=== PATIENT | male | born 1985 | race Caucasian/White ===

== ENCOUNTER 2022-07-14 10:04 | Emergency (ER) | payer OTHER, SELFPAY ==
--- NOTE | 2022-07-14 10:08 | ED_ITS ---
HPI - General Adult General Chief complaint: Upper Respiratory Symptoms Stated complaint: flu like symptoms,vomiting & diarrhea Time Seen by Provider: 07/14/22 10:08 History of Present Illness HPI narrative: 37-year-old male nonsmoker with noncontributory medical history presents with 4 days of dry hacking cough, body aches as well as multiple episodes of nausea, vomiting and diarrhea. He is feeling weak and generally unwell. He states his daughter was recently diagnosed with both flu and RSV. He has been unable to eat or drink or even take Tylenol or Motrin because of persistent vomiting. He denies any dizziness or lightheadedness. He denies any chest pain or shortness of breath. He denies recent travel, antibiotic use or exposure to bad food Related Data Previous Rx's Medication Instructions Recorded ondansetron 4 mg disintegrating 4 mg PO TID-QID PRN nausea and 07/14/22 tablet vomiting #20 tabs Review of Systems Review of Systems Narrative: GENERAL see HPI HEENT: Denies sinus pain, ear pain, sore throat, difficulty swallowing, dizziness. RESPIRATORY: See HPI CARDIOVASCULAR: Denies chest pain, palpitations, orthopnea, edema, GASTROINTESTINAL: See HPI : Denies dysuria, frequency, incontinence, hematuria, urinary retention. MUSCULOSKELETAL: denies weakness, joint pain, or bony pain SKIN: Denies rash, skin lesions, or other NEUROLOGIC: Denies weakness, headache, numbness, change in speech, confusion, seizures, incoordination. PSYCHIATRIC: No concerning psychosocial issues. 12 point review of systems is negative except for those stated above Exam Narrative Exam Narrative: GENERAL: [37 year old patient appears stated age. Well-developed patient, in mild distress. HEAD: Atraumatic. Normocephalic. EYES: Pupils equal round and reactive. Extraocular motions intact. No scleral icterus. No injection or drainage. ENT: Nose without bleeding, purulent drainage. Throat without erythema, tonsillar hypertrophy or exudate. Airway patent. NECK: Trachea midline. Non tender CARDIOVASCULAR: Regular rate and rhythm without murmurs, gallops, or rubs. RESPIRATORY: Clear to auscultation. Breath sounds equal bilaterally. No wheezes, rales, or rhonchi. GASTROINTESTINAL: Abdomen soft, non-tender, nondistended. EXTREMITIES: No edema or joint tenderness. BACK: Nontender without deformity or crepitance. No flank tenderness. NEURO: AOx3. SKIN: No rash or erythema of visible areas Initial Vital Signs Initial Vital Signs: Vital Signs Temperature 98.0 F 07/14/22 10:16 Pulse Rate 95 H 07/14/22 10:16 Respiratory Rate 16 07/14/22 10:16 Blood Pressure 136/92 H 07/14/22 10:16 Pulse Oximetry 97 07/14/22 10:16 Oxygen Delivery Method 07/14/22 10:16 Course Orders Ordered: ED Orders 07/14/22 10:18 Covid-19 + FLU A/B + RSV - PCR Stat Discontinued Medications Ondansetron HCl (Ondansetron 4 Mg Odt) 4 mg SL NOW ONE Stop: 07/14/22 10:17 Last Admin: 07/14/22 10:30 Dose: 4 mg Documented By: MONSERRAT Vital Signs Vital signs: Vital Signs - 8 hr 07/14/22 10:16 07/14/22 10:16 07/14/22 10:30 Temperature 98.0 F Pulse Rate 95 H 96 H 88 Respiratory Rate 16 Blood Pressure 136/92 H Pulse Oximetry 97 98 95 Oxygen Delivery Method Room Air 07/14/22 11:00 07/14/22 11:30 07/14/22 12:00 Temperature Pulse Rate 88 82 76 Respiratory Rate Blood Pressure Pulse Oximetry 95 95 94 Oxygen Delivery Method 07/14/22 12:08 07/14/22 12:08 Temperature Pulse Rate 85 Respiratory Rate Blood Pressure 123/81 Pulse Oximetry 96 Oxygen Delivery Method Medical Decision Making Lab Data Labs: Lab Results 07/14/22 Range/Units 10:18 SARS-CoV-2 (PCR) Negative (Negative) Influenza A (RT-PCR) Flu a positive H (NEGATIVE) Influenza B (RT-PCR) Flu b negative (NEGATIVE) RSV (PCR) Negative (Negative) Discharge Plan Departure Patient Disposition: Home Clinical Impression: Influenza A Instructions: DI for Influenza -- Adult Activity Restrictions/Additional Instructions: *You have been diagnosed with [influenza a] *What to do: *Please continue to take your regular medications as directed. [ x] New medication prescriptions sent to your pharmacy: [ [facility] in [place]] [ ] New medication written as a paper prescription [ ] No new medications given *Please follow up with your primary care provider in 2-3 days, call for an appointment. Let them know you were seen in the Emergency Department and that we ask that you be seen in follow up. We will electronically transmit a record of today's note if your PCP is in our system *Return to Emergency Department if you should have any new, worsening or concerning symptoms Prescriptions: New ondansetron 4 mg tablet,disintegrating 4 mg PO TID-QID PRN (Reason: nausea and vomiting) Qty: 20 0RF Visit Report Forms: Patient Portal/API
[2022-07-14 10:16] VITALS: BP 136/92; PULSE 95; PULSE 96; RESP 16; TEMP 36.7; O2SAT 97; O2SAT 98; BMI 32.6
[2022-07-14 10:30] VITALS: PULSE 88; O2SAT 95
[2022-07-14] MEDS: ONDANSETRON 4 MG ODT SL (10:30)
[2022-07-14 11:00] VITALS: PULSE 88; O2SAT 95
[2022-07-14 11:30] VITALS: PULSE 82; O2SAT 95
[2022-07-14 12:00] VITALS: PULSE 76; O2SAT 94
[2022-07-14 12:00] LABS: Influenza A - CEPHEID Flu A POSITIVE (NEGATIVE); Influenza B - CEPHEID Flu B NEGATIVE (NEGATIVE); Respiratory Syncytial Virus Negative (Negative)
[2022-07-14 12:04] LABS: COVID-19 CEPHEID 4-PLEX PCR Negative (Negative)
[2022-07-14 12:08] VITALS: BP 123/81; PULSE 85; O2SAT 96
== END 2022-07-14 12:26 | disposition home or self-care (01) ==
PROVIDERS: Emergency Provider Emergency Medicine
DX: J10.1 Influenza due to other identified influenza virus with other respiratory manifestations (principal); Z20.822 Contact with and (suspected) exposure to COVID-19
CPT/HCPCS: 0241U; 99282; 99283

== ENCOUNTER 2022-11-13 14:25 | Emergency (ER) | payer OTHER, SELFPAY ==
[2022-11-13] VITALS (41 sets, daily range): BP systolic 82–172; BP diastolic 53–113; PULSE 54–87; RESP 18; TEMP 37.1; O2SAT 98–100; BMI 31.0
--- NOTE | 2022-11-13 14:51 | DI.RAD.S_ITS ---
PROCEDURE: XR HAND LT MIN 3V INDICATIONS: Chop saw between 2nd and 3rd digit TECHNIQUE: 3 views of the hand(s) acquired. COMPARISON: None. FINDINGS: Bones: Cortical irregularity involving radial aspect of 2nd metacarpal head is seen concerning for acute injury in this area. No other fracture or dislocation is seen. Carpal bones are normally aligned. No suspicious bony lesions. Soft tissues: Small calcifications are noted in soft tissue over radial aspect of 2nd metacarpal head. No other radiopaque foreign body is seen. IMPRESSION: 1. Cortical irregularity involving radial aspect of 2nd metacarpal head with adjacent small calcifications likely represent chainsaw injury given patient's history. Small calcified foreign body in this area cannot be excluded suggest clinical correlation and follow-up. Dictated by: Daniele Lea M.D. on 11/13/2022 at 14:51 Approved by: Daniele Lea M.D. on 11/13/2022 at 14:53
--- NOTE | 2022-11-13 15:17 | ED.WOUNDLAC ---
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 He states that he covered it with a bandage and came to the emergency department. He is having some tingling to his left index finger but has a difficulty extending it. Reports no other injuries for the event. He is up-to-date on his tetanus. Related Data Previous Rx's Medication Instructions Recorded ondansetron 4 mg disintegrating 4 mg PO TID-QID PRN nausea and 07/14/22 tablet vomiting #20 tabs cephalexin 500 mg capsule 500 mg PO QID 7 days #28 caps 11/13/22 hydrocodone 5 mg-acetaminophen 325 1 tab PO Q4-6H PRN pain #14 tabs 11/13/22 mg tablet Allergies Allergy/AdvReac Type Severity Reaction Status Date / Time No Known Drug Allergies Allergy Verified 11/13/22 14:51 Review of Systems Musculoskeletal Musculoskeletal: Reports system reviewed and no additional complaints, except as documented Integumentary/Breasts Skin/Breast: Reports system reviewed and no additional complaints, except as documented Neurologic Neurologic: Reports system reviewed and no additional complaints, except as documented Hematologic/Lymphatic On Anticoagulants: No Patient History Social History Smoking Status: Never smoker Smoking Status: Never smoker alcohol intake frequency: 0-2 drinks per day Alcohol type: beer Substance Use Type: does not use Exam Initial Vital Signs Initial Vital Signs: Vital Signs Temperature 98.7 F 11/13/22 14:43 Pulse Rate 82 11/13/22 14:43 Respiratory Rate 18 11/13/22 14:43 Blood Pressure 136/92 H 11/13/22 14:43 Pulse Oximetry 98 11/13/22 14:43 Oxygen Delivery Method Room Air 11/13/22 14:43 Cardio Pulses: radial pulses present on the left Skin Other: Patient has an extensive wound of the dorsal left index finger. Neuro Other: Sensation is intact distal left index finger although is having some tingling. Extrem Other: Has a large wound of the dorsum of the left hand of the base of the index finger. Patient is unable to extend at the MCP joint of the left index finger. Procedures Laceration Repair Laceration 1: Site: hand Side (If applicable): left Size (cm): 10 Description: flap and irregular Depth: involves tendon Local Anesthetic: lidocaine 1% Amount of anesthesia used (mL): 12 Pre-repair: wound explored and irrigated extensively Skin layer closed with: nylon Skin layer suture size: 3-0 Technique: simple, interrupted Orthopedic Splinting/Casting Injury #1: Side: left Upper Extremity Injury Location: hand Upper Extremity Immobilizer: volar splint Post splinting neuro exam: no change Post splinting vascular exam: no change Placed by: Provider Course Orders Ordered: ED Orders 11/13/22 14:51 XR hand LT min 3V Stat 11/13/22 15:15 Basic Metabolic Panel Stat Complete Blood Count AUTO DIFF Stat Discontinued Medications Cefazolin Sodium 2 gm/ Sodium (Chloride) 100 mls @ 200 mls/hr IV NOW ONE Stop: 11/13/22 15:34 Last Infusion: 11/13/22 16:34 Dose: 0 mls/hr Documented By: Admin: 11/13/22 15:37 Dose: 200 mls/hr Documented By: RB Sodium Chloride (Normal Saline 0.9%) 1,000 mls @ 1,000 mls/hr IV BOLUS ONE Stop: 11/13/22 16:47 Last Infusion: 11/13/22 16:57 Dose: 0 mls/hr Documented By: Admin: 11/13/22 15:51 Dose: 1,000 mls/hr Documented By: RB Morphine Sulfate (Morphine 4 Mg/Ml Inj) 4 mg IV NOW ONE Stop: 11/13/22 15:06 Last Admin: 11/13/22 15:36 Dose: 4 mg Documented By: RB Vital Signs Vital signs: Vital Signs - 8 hr 11/13/22 14:43 11/13/22 15:40 11/13/22 15:40 Temperature 98.7 F Pulse Rate 82 86 Respiratory Rate 18 Blood Pressure 136/92 H 155/102 H Pulse Oximetry 98 100 Oxygen Delivery Method Room Air 11/13/22 15:45 11/13/22 15:46 11/13/22 15:46 Temperature Pulse Rate 54 L 54 L Respiratory Rate Blood Pressure 82/53 L Pulse Oximetry 99 98 Oxygen Delivery Method 11/13/22 15:50 11/13/22 15:50 11/13/22 15:52 Temperature Pulse Rate 67 Respiratory Rate Blood Pressure 103/59 L 110/75 Pulse Oximetry 99 Oxygen Delivery Method 11/13/22 15:52 11/13/22 15:54 11/13/22 15:54 Temperature Pulse Rate 72 77 Respiratory Rate Blood Pressure 116/77 Pulse Oximetry 99 100 Oxygen Delivery Method 11/13/22 15:55 11/13/22 15:57 11/13/22 15:57 Temperature Pulse Rate 76 77 Respiratory Rate Blood Pressure 138/88 Pulse Oximetry 100 100 Oxygen Delivery Method 11/13/22 16:00 11/13/22 16:00 11/13/22 16:03 Temperature Pulse Rate 70 72 Respiratory Rate Blood Pressure 143/103 H Pulse Oximetry 100 100 Oxygen Delivery Method 11/13/22 16:03 11/13/22 16:05 11/13/22 16:06 Temperature Pulse Rate 70 Respiratory Rate Blood Pressure 152/102 H 152/98 H Pulse Oximetry 100 Oxygen Delivery Method 11/13/22 16:06 11/13/22 16:09 11/13/22 16:09 Temperature Pulse Rate 73 72 Respiratory Rate Blood Pressure 139/101 H Pulse Oximetry 100 100 Oxygen Delivery Method 11/13/22 16:10 11/13/22 16:12 11/13/22 16:12 Temperature Pulse Rate 71 74 Respiratory Rate Blood Pressure 155/108 H Pulse Oximetry 100 100 Oxygen Delivery Method 11/13/22 16:15 11/13/22 16:15 11/13/22 16:18 Temperature Pulse Rate 72 78 Respiratory Rate Blood Pressure 157/108 H Pulse Oximetry 100 99 Oxygen Delivery Method 11/13/22 16:18 11/13/22 16:20 11/13/22 16:21 Temperature Pulse Rate 72 72 Respiratory Rate Blood Pressure 169/106 H Pulse Oximetry 100 100 Oxygen Delivery Method 11/13/22 16:21 11/13/22 16:24 11/13/22 16:24 Temperature Pulse Rate 73 Respiratory Rate Blood Pressure 167/106 H 166/107 H Pulse Oximetry 100 Oxygen Delivery Method 11/13/22 16:25 11/13/22 16:27 11/13/22 16:27 Temperature Pulse Rate 71 73 Respiratory Rate Blood Pressure 163/102 H Pulse Oximetry 100 99 Oxygen Delivery Method 11/13/22 16:30 11/13/22 16:30 11/13/22 16:33 Temperature Pulse Rate 82 Respiratory Rate Blood Pressure 166/108 H 172/113 H Pulse Oximetry 100 Oxygen Delivery Method 11/13/22 16:33 11/13/22 16:35 11/13/22 16:36 Temperature Pulse Rate 82 78 81 Respiratory Rate Blood Pressure Pulse Oximetry 99 99 98 Oxygen Delivery Method 11/13/22 16:36 11/13/22 16:39 11/13/22 16:39 Temperature Pulse Rate 79 Respiratory Rate Blood Pressure 172/107 H 172/102 H Pulse Oximetry 100 Oxygen Delivery Method 11/13/22 16:40 11/13/22 16:42 11/13/22 16:42 Temperature Pulse Rate 81 79 Respiratory Rate Blood Pressure 164/101 H Pulse Oximetry 100 100 Oxygen Delivery Method 11/13/22 16:45 11/13/22 16:45 11/13/22 16:48 Temperature Pulse Rate 77 Respiratory Rate Blood Pressure 170/104 H 156/101 H Pulse Oximetry 100 Oxygen Delivery Method 11/13/22 16:48 11/13/22 16:50 11/13/22 16:51 Temperature Pulse Rate 81 77 Respiratory Rate Blood Pressure 158/103 H Pulse Oximetry 100 100 Oxygen Delivery Method 11/13/22 16:51 11/13/22 16:54 11/13/22 16:54 Temperature Pulse Rate 80 85 Respiratory Rate Blood Pressure 157/95 H Pulse Oximetry 100 99 Oxygen Delivery Method 11/13/22 16:55 11/13/22 16:57 11/13/22 16:57 Temperature Pulse Rate 82 80 Respiratory Rate Blood Pressure 155/103 H Pulse Oximetry 100 99 Oxygen Delivery Method 11/13/22 17:00 11/13/22 17:00 11/13/22 17:03 Temperature Pulse Rate 83 82 Respiratory Rate Blood Pressure 154/100 H Pulse Oximetry 100 99 Oxygen Delivery Method 11/13/22 17:03 11/13/22 17:04 11/13/22 17:04 Temperature Pulse Rate 85 Respiratory Rate Blood Pressure 159/104 H 158/104 H Pulse Oximetry 99 Oxygen Delivery Method 11/13/22 17:05 Temperature Pulse Rate 87 Respiratory Rate Blood Pressure Pulse Oximetry 100 Oxygen Delivery Method MDM - Wound/Laceration Lab Data Attestation: I reviewed the patient's lab results. 11/13/22 15:15 11/13/22 15:15 Labs: Lab Results 11/13/22 11/13/22 Range/Units 15:15 15:15 WBC 9.3 (4.5-11.0) X10^3/uL RBC 5.20 (4.5-5.9) X10^6/uL Hgb 15.9 (13.5-17.5) g/dL Hct 46.2 (41-53) % MCV 88.8 (80-100) fL MCH 30.6 (26-34) PG MCHC 34.5 (30-36) % RDW 12.6 (11.6-14.8) % Plt Count 239 (150-400) X10^3/uL Neut % (Auto) 69.4 (50-75) % Lymph % (Auto) 24.1 L (25-40) % [place] % (Auto) 5.9 (3-14) % Eos % (Auto) 0.4 L (2-4) % Baso % (Auto) 0.2 (0-2) % Neut # (Auto) 6500 (3240-1091) /uL Lymph # (Auto) 2200 (5181-1152) /uL [place] # (Auto) 500 (0-900) /uL Eos # (Auto) 0 (0-450) /uL Baso # (Auto) 0 (0-100) /uL Sodium 137 (137-145) mmol/L Potassium 3.8 (3.4-5.1) mmol/L Chloride 101 (98-107) mmol/L Carbon Dioxide 27 (22-32) mmol/L BUN 18 (9-20) mg/dL Creatinine 0.97 (0.66-1.25) mg/dL Estimated GFR > 60 (>60) mL/min BUN/Creatinine Ratio 18.6 (6-22) Glucose 97 (70-100) mg/dL Calcium 9.7 (8.4-10.2) mg/dL Imaging Data Extremity x-ray #1: Radiologist's Impression: PROCEDURE:? XR HAND LT MIN 3V ? INDICATIONS:? Chop saw between 2nd and 3rd digit ? TECHNIQUE:? 3 views of the hand(s) acquired.? ? COMPARISON:? None. ? FINDINGS:? ? Bones:? Cortical irregularity involving radial aspect of 2nd metacarpal head is seen concerning for acute injury in this area.? No other fracture or dislocation is seen.? Carpal bones are normally aligned.? No suspicious bony lesions.? ? Soft tissues:? Small calcifications are noted in soft tissue over radial aspect of 2nd metacarpal head.? No other radiopaque foreign body is seen. ? ? IMPRESSION:? 1. Cortical irregularity involving radial aspect of 2nd metacarpal head with adjacent small calcifications likely represent chainsaw injury given patient's history.? Small calcified foreign body in this area cannot be excluded suggest clinical correlation and follow-up.? MDM Narrative Medical decision making narrative: Patient is up-to-date on his tetanus. He was given antibiotics here in the ER. Patient has injured the extensor tendon on his left index finger. Also appears to be some bony involvement. I did discuss the case with Dr. Duran on-call with Orthopedic surgery. Recommended that the wound be loosely closed. Patient be placed on antibiotics and that he would see the patient later this week for further evaluation. Patient was also splinted. 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 He was given return precautions. He expressed understanding and agreement. Discharge Plan Departure Patient Disposition: Home Clinical Impression: Injury of extensor tendon of left hand, Laceration Instructions: How to Take Care of Your Splint Activity Restrictions/Additional Instructions: The splint that was placed today does need to be treated like a cast. A prescription for antibiotics and pain medication was sent to the pharmacy of your choice. I recommend that tomorrow you contact the orthopedic surgeon at the number provided below and also the primary doctor for a referral through . Return to the emergency department for any new or worsening symptoms. Prescriptions: New cephalexin 500 mg capsule 500 mg PO QID 7 Days Qty: 28 0RF hydrocodone-acetaminophen 5-325 mg tablet 1 tab PO Q4-6H PRN (Reason: pain) Qty: 14 0RF No Action ondansetron 4 mg tablet,disintegrating 4 mg PO TID-QID PRN (Reason: nausea and vomiting) Qty: 20 0RF Referrals: Torrey Duran MD [Physician] - Stand Alone Forms: Patient Portal/API
[2022-11-13 15:27] LABS: Add Manual Diff / Slide Review NO; Basophils Absolute Auto 0 /uL (0-100); Basophils Percent Auto 0.2 % (0-2); Eosinophils Absolute Auto 0 /uL (0-450); Eosinophils Percent Auto 0.4 % (2-4); Hematocrit 46.2 % (41-53); Hemoglobin 15.9 g/dL (13.5-17.5); Lymphocytes Absolute Auto 2200 /uL (1100-4500); Lymphocytes Percent Auto 24.1 % (25-40); Mean Corpuscular HGB Conc 34.5 % (30-36); Mean Corpuscular Hemoglobin 30.6 PG (26-34); Mean Corpuscular Volume 88.8 fL (80-100); Monocytes Absolute Auto 500 /uL (0-900); Monocytes Percent Auto 5.9 % (3-14); Neutrophils Absolute Auto 6500 /uL (1500-7000); Neutrophils Percent Auto 69.4 % (50-75); Platelet Count 239 X10^3/uL (150-400); Red Cell Distribution Width 12.6 % (11.6-14.8); White Blood Cell Count 9.3 X10^3/uL (4.5-11.0)
[2022-11-13] MEDS: MORPHINE 4 MG/ML INJ IV (15:36)
[2022-11-13] MEDS: CEFAZOLIN VIAL 2 GM in SODIUM CHLORIDE 0.9% 100 ML IV (15:37)
[2022-11-13 15:46] LABS: BUN Creatinine Ratio 18.6 (6-22); Blood Urea Nitrogen 18 mg/dL (9-20); Calcium 9.7 mg/dL (8.4-10.2); Carbon Dioxide 27 mmol/L (22-32); Chloride 101 mmol/L (98-107); Estimated Glomerular Filt Rate > 60 mL/min (>60); Glucose 97 mg/dL (70-100); HEMOLYSIS < 15 (0-50); Potassium 3.8 mmol/L (3.4-5.1); Sodium 137 mmol/L (137-145)
[2022-11-13] MEDS: SODIUM CHLORIDE 0.9% 1,000 ML 1000 ML IV (15:51)
== END 2022-11-13 17:12 | disposition home or self-care (01) ==
PROVIDERS: Emergency Provider Emergency Medicine
DX: S66.321A Laceration of extensor muscle, fascia and tendon of left index finger at wrist and hand level, initial encounter (principal); W27.0XXA Contact with workbench tool, initial encounter
CPT/HCPCS: 13132; 36415; 73130; 80048; 85025; 96365; 96375; 99284; J0690; J2270

== ENCOUNTER → 2023-12-31 08:03 | Outpatient (CLI) | payer OTHER, SELFPAY ==
--- NOTE | 2023-12-31 08:04 | DI.US.S_ITS ---
PROCEDURE: US ABDOMEN LIMITED INDICATIONS: ABNORMAL RESULTS LFTS TECHNIQUE: Real-time scanning was performed of the abdominal and retroperitoneal organs, with image documentation. COMPARISON: None. FINDINGS: Liver: Increased liver echogenicity with posterior attenuation, most consistent with moderate to severe steatosis. Fat sparing at the gallbladder fossa. Gallbladder: No gallstones. No wall thickening. No pericholecystic edema. Negative sonographic Alford's sign. Biliary ducts: Intrahepatic bile ducts are non-dilated. Extrahepatic bile duct caliber measures 4 mm. Normal is 6-7 mm or less in diameter, or 10 mm or less post-cholecystectomy. Pancreas: Visualized portions of the pancreas are sonographically normal. Miscellaneous: No free abdominal fluid. IMPRESSION: At least moderate hepatic steatosis. Elevated liver enzymes may indicate steatohepatitis. Dictated by: Lai Andrews M.D. on 12/31/2023 at 8:56 Approved by: Lai Andrews M.D. on 12/31/2023 at 8:56
== END ==
DX: R94.5 Abnormal results of liver function studies (principal); K76.0 Fatty (change of) liver, not elsewhere classified; Z90.49 Acquired absence of other specified parts of digestive tract
CPT/HCPCS: 76705

== ENCOUNTER 2024-07-18 13:41 | Emergency (ER) | payer OTHER, SELFPAY ==
[2024-07-18 13:48] VITALS: BP 141/88; PULSE 83; RESP 18; TEMP 36.8; O2SAT 97; BMI 32.5
--- NOTE | 2024-07-18 14:13 | ED.ANIMALBIT ---
HPI - Animal Bite <Charito Goncalves PA-C - Last Filed: 07/18/24 15:54> General Chief Complaint: Animal Bite Stated Complaint: his dog bit him right arm Time Seen by Provider: 07/18/24 13:59 History of Present Illness HPI narrative: Mr. 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 Patient is accompanied by his who contributes to the history. States that last night his pet husky got into right poison and when he attempted to rip the rat poison out of the dog's mouth sustained a bite wound to his right forearm and left wrist. Reports his dog is up-to-date on all vaccines including rabies. Patient states the right forearm has become more red and swollen and he has pain in the forearm when he makes a fist with his hand. Denies fevers, chills, any other injuries. He has not taken any pain medication prior to arrival. He is unsure of his last tetanus shot. Related Data Previous Rx's Medication Instructions Recorded ondansetron 4 mg disintegrating 4 mg PO TID-QID PRN nausea and 07/14/22 tablet vomiting #20 tabs hydrocodone 5 mg-acetaminophen 325 1 tab PO Q4-6H PRN pain #14 tabs 11/13/22 mg tablet amoxicillin 875 mg-potassium 1 tab PO BID 10 days #20 tabs 07/18/24 clavulanate 125 mg tablet Allergies Allergy/AdvReac Type Severity Reaction Status Date / Time No Known Drug Allergies Allergy Verified 11/13/22 14:51 Review of Systems <Charito Goncalves PA-C - Last Filed: 07/18/24 15:54> Review of Systems ROS Unobtainable: All systems reviewed & are unremarkable except as noted in HPI and below Patient History <Charito Gnocalves PA-C - Last Filed: 07/18/24 15:54> Social History Smoking Status: Current every day smoker Smoking Status: Current every day smoker tobacco type: vaping alcohol intake frequency: 0-2 drinks per day Alcohol type: beer Substance Use Type: does not use Exam <Charito Goncalves PA-C - Last Filed: 07/18/24 15:54> Narrative Exam Narrative: GENERAL: 39 year old patient appears stated age. Well-developed patient, in no acute distress. HEAD: Atraumatic. Normocephalic. EYES: Extraocular motions intact. No scleral icterus. No injection or drainage. ENT: Nose without bleeding, purulent drainage. Airway patent. NECK: Trachea midline. Cervical ROM intact. CARDIOVASCULAR: Regular rate RESPIRATORY: ?Nonlabored respirations. ?Speaking in clear, full sentences. ? EXTREMITIES: right arm brace and KT tape in place for prior injuries. Dorsal, proximal right forearm with 3 superficial appearing puncture wounds with surrounding swelling and erythema, tender to touch. Left wrist with 3 superficial abrasion/scabs. Patient has full range of motion of the right hand and sensation intact to light touch in the distribution of the median, radial, ulnar nerve. Patient has pain in the forearm when he range of motions his hand. Strong palpable bilateral radial pulses. Right forearm compartments are soft. BACK: Nontender without deformity or crepitance. No flank tenderness. NEURO: AOx3. ?Clear speech. ?Moves all 4 extremities appropriately. SKIN: No rash or erythema of visible areas Initial Vital Signs Initial Vital Signs: Vital Signs Temperature 98.2 F 07/18/24 13:48 Pulse Rate 83 07/18/24 13:48 Respiratory Rate 18 07/18/24 13:48 Blood Pressure 141/88 H 07/18/24 13:48 Pulse Oximetry 97 07/18/24 13:48 Oxygen Delivery Method Room Air 07/18/24 13:48 <Whit Suresh MD - Last Filed: 07/18/24 19:25> Initial Vital Signs Initial Vital Signs: Vital Signs Temperature 98.2 F 07/18/24 13:48 Pulse Rate 83 07/18/24 13:48 Respiratory Rate 18 07/18/24 13:48 Blood Pressure 141/88 H 07/18/24 13:48 Pulse Oximetry 97 07/18/24 13:48 Oxygen Delivery Method Room Air 07/18/24 13:48 Course <Charito Goncalves PA-C - Last Filed: 07/18/24 15:54> Orders Ordered: ED Orders 07/18/24 14:21 XR forearm RT 2V Stat Discontinued Medications Amoxicillin/Clavulanate Potassium (Amoxicillin/Clav 875/125 Mg) 1 tab PO NOW ONE Stop: 07/18/24 14:23 Last Admin: 07/18/24 14:31 Dose: 1 tab Documented By: SCOTT Bacitracin (Bacitracin Oint 0.9 Gm Pckt) 1 applic TOP NOW ONE Stop: 07/18/24 14:55 Last Admin: 07/18/24 15:03 Dose: 1 applic Documented By: SCOTT Diphtheria/Tetanus/Acell Pertussis (Tet,Diph,Pertuss(Acell),Vac/Pf 0.5 Ml Syringe) 0.5 ml IM .ONCE ONE Stop: 07/18/24 14:22 Last Admin: 07/18/24 14:51 Dose: 0.5 ml Documented By: SCOTT Ibuprofen (Ibuprofen 400 Mg Tablet) 400 mg PO NOW ONE Stop: 07/18/24 14:22 Last Admin: 07/18/24 14:31 Dose: 400 mg Documented By: SCOTT Oxycodone/Acetaminophen (Oxycodone/Acetaminophen 5/325 Tablet) 1 tab PO NOW ONE Stop: 07/18/24 14:22 Last Admin: 07/18/24 14:31 Dose: 1 tab Documented By: SCOTT Vital Signs Vital signs: Vital Signs - 8 hr 07/18/24 13:48 Temperature 98.2 F Pulse Rate 83 Respiratory Rate 18 Blood Pressure 141/88 H Pulse Oximetry 97 Oxygen Delivery Method Room Air <Whit Suresh MD - Last Filed: 07/18/24 19:25> Orders Ordered: ED Orders 07/18/24 14:21 XR forearm RT 2V Stat Discontinued Medications Amoxicillin/Clavulanate Potassium (Amoxicillin/Clav 875/125 Mg) 1 tab PO NOW ONE Stop: 07/18/24 14:23 Last Admin: 07/18/24 14:31 Dose: 1 tab Documented By: SCOTT Bacitracin (Bacitracin Oint 0.9 Gm Pckt) 1 applic TOP NOW ONE Stop: 07/18/24 14:55 Last Admin: 07/18/24 15:03 Dose: 1 applic Documented By: SCOTT Diphtheria/Tetanus/Acell Pertussis (Tet,Diph,Pertuss(Acell),Vac/Pf 0.5 Ml Syringe) 0.5 ml IM .ONCE ONE Stop: 07/18/24 14:22 Last Admin: 07/18/24 14:51 Dose: 0.5 ml Documented By: SCOTT Ibuprofen (Ibuprofen 400 Mg Tablet) 400 mg PO NOW ONE Stop: 07/18/24 14:22 Last Admin: 07/18/24 14:31 Dose: 400 mg Documented By: SCOTT Oxycodone/Acetaminophen (Oxycodone/Acetaminophen 5/325 Tablet) 1 tab PO NOW ONE Stop: 07/18/24 14:22 Last Admin: 07/18/24 14:31 Dose: 1 tab Documented By: SCOTT Vital Signs Vital signs: Vital Signs - 8 hr 07/18/24 13:48 Temperature 98.2 F Pulse Rate 83 Respiratory Rate 18 Blood Pressure 141/88 H Pulse Oximetry 97 Oxygen Delivery Method Room Air MDM - Animal Bite <Charito Goncalves PA-C - Last Filed: 07/18/24 15:54> Imaging Data Right Forearm XRay: My Impression: On my independent interpretation of the right forearm x-ray, there is no fracture of the radius or ulna. Radiologist's Impression: PROCEDURE: XR FOREARM RT 2V INDICATIONS: dog bite dorsal right forearm TECHNIQUE: 2 views of the forearm were acquired. COMPARISON: None. FINDINGS: Bones: No fractures or dislocations. No suspicious bony lesions. Soft tissues: No suspicious soft tissue calcifications or masses. No subcutaneous emphysema or radiodense body. Mild soft tissue swelling at the dorsal aspect of the mid forearm. IMPRESSION: No acute bony abnormality. Mild soft tissue swelling of the dorsal aspect of the mid forearm without evidence of radiodense foreign body or subcutaneous emphysema. [facility] Narrative Medical decision making narrative: 39-year-old male with a past medical history of right biceps tendon rupture and extensor tendon rupture presents to the emergency department for a dog bite that occurred last night. Dog was the patient's vaccinated pet. Differential diagnosis includes but is not limited to crush injury, dog bite, infection, cellulitis, abscess, puncture wound, compartment syndrome, fracture, etc. On exam patient is in no acute distress, not tachycardic or febrile. He has puncture wounds on the dorsal right forearm with surrounding erythema concerning for early cellulitis. He also has superficial puncture wounds on the left wrist. Patient's right arm compartment is soft but he does have tenderness to palpation, right hand neurovascularly intact. We will obtain x-ray of the right forearm to rule of bony crush injury. We will update tetanus shot, treat pain with Percocet and ibuprofen. We will give 1st dose of Augmentin. Right forearm x-ray negative for acute bony abnormality. There is mild soft tissue swelling without evidence of radiodense foreign body or subcutaneous emphysema. Imaging results were reviewed with the patient and he was provided with a printed copy. Patient was prescribed Augmentin b.i.d. x 10 days for dog bite infection. Tdap updated. We discussed proper wound care extensively. Discussed signs and symptoms of worsening wound infection or compartment syndrome to return to the ER immediately for. Patient was recommended rice therapy in addition to ibuprofen and Tylenol. Patient is agreeable to the plan, stable for discharge. Discharge Plan Departure Patient Disposition: Home Clinical Impression: Dog bite of right forearm Qualifiers: Encounter type: initial encounter Qualified Code(s): S51.851A - Open bite of right forearm, initial encounter Dog bite of left wrist Qualifiers: Encounter type: initial encounter Qualified Code(s): S61.552A - Open bite of left wrist, initial encounter Instructions: DI for Dog Bite Activity Restrictions/Additional Instructions: Please complete the full course of antibiotics. Keep your wounds clean, covered with antibiotic ointment and a bandage dressing. Your tetanus shot was updated today. If you develop severe pain, numbness or tingling, fevers, streaking redness from the wound, or any other new or worsening symptoms, return to the ER immediately. Please take Ibuprofen (Motrin/Advil) or Acetaminophen (Tylenol) for pain. These are available over the counter. You may take Ibuprofen 600 mg every 8 hours with food for pain. You may also take Acetaminophen 650 mg every 4-6 hours for pain. Do not exceed 3000 mg of Tylenol a day as this can cause liver damage. Do not drink alcohol with either of these medications. Please use RICE therapy for your pain in addition to ibuprofen/acetaminophen. Rest the painful area. Ice the area of pain/swelling for at least 15 minutes, 4x a day. Compress the area of swelling using a brace, wrap, or splint if applied. Elevate the painful or swollen extremity by supporting it above the level of the heart with pillows when sitting or laying. Please follow up with Orthopedics for further evaluation. You may schedule an appointment with [facility] by calling [phone]. Please follow up with your primary care doctor within the next 2-3 days for ER follow-up / wound re-check. (If you do not have a PCP you can call [phone]. ?to schedule an appointment with an [facility] Primary Care Provider) IF YOU DEVELOP ANY NEW OR WORSENING SYMPTOMS, RETURN TO THE ER! Please read the attached instructions, they highlight more specific treatments and interventions for you at home. Thank you for letting me participate in your care, Charito Goncalves PA-C Prescriptions: New amoxicillin-pot clavulanate 875-125 mg tablet 1 tab PO BID 10 Days Qty: 20 0RF No Action ondansetron 4 mg tablet,disintegrating 4 mg PO TID-QID PRN (Reason: nausea and vomiting) Qty: 20 0RF hydrocodone-acetaminophen 5-325 mg tablet 1 tab PO Q4-6H PRN (Reason: pain) Qty: 14 0RF Stand Alone Forms: Patient Portal/API/Survey ED Sign-out <Whit Suresh MD - Last Filed: 07/18/24 19:25> Cosign ED Attending Cosavaniature Attestation: I was immediately available in the department for consultation throughout this patient's visit. Whit Suresh MD
--- NOTE | 2024-07-18 14:21 | DI.RAD.S_ITS ---
PROCEDURE: XR FOREARM RT 2V INDICATIONS: dog bite dorsal right forearm TECHNIQUE: 2 views of the forearm were acquired. COMPARISON: None. FINDINGS: Bones: No fractures or dislocations. No suspicious bony lesions. Soft tissues: No suspicious soft tissue calcifications or masses. No subcutaneous emphysema or radiodense body. Mild soft tissue swelling at the dorsal aspect of the mid forearm. IMPRESSION: No acute bony abnormality. Mild soft tissue swelling of the dorsal aspect of the mid forearm without evidence of radiodense foreign body or subcutaneous emphysema. Approved by: Vashti Rangel M.D.,Ph.D. on 07/18/2024 at 14:47
[2024-07-18] MEDS: OXYCODONE/ACETAMINOPHEN 5/325 TABLET 1 TAB PO (14:31)
[2024-07-18] MEDS: AMOXICILLIN/CLAV 875/125 MG 1 TAB PO (14:31)
[2024-07-18] MEDS: IBUPROFEN 400 MG TABLET PO (14:31)
[2024-07-18] MEDS: TET,DIPH,PERTUSS(ACELL),VAC/PF 0.5 ML SYRINGE IM (14:51)
[2024-07-18] MEDS: BACITRACIN OINT 0.9 GM PCKT 1 APPLIC TOP (15:03)
== END 2024-07-18 15:35 | disposition home or self-care (01) ==
PROVIDERS: Emergency Provider Physician Assistant
DX: S51.851A Open bite of right forearm, initial encounter (principal); S61.552A Open bite of left wrist, initial encounter; W54.0XXA Bitten by dog, initial encounter; Z23 Encounter for immunization
CPT/HCPCS: 73090; 90471; 99283; 90715

== ENCOUNTER 2024-09-01 10:17 | Emergency (ER) | payer OTHER, SELFPAY ==
[2024-09-01 10:21] VITALS: BP 168/112; PULSE 75; RESP 15; TEMP 36.4; O2SAT 99; BMI 36.1
[2024-09-01 10:43] LABS: Add Manual Diff / Slide Review NO; Basophils Absolute Auto 0 /uL (0-100); Basophils Percent Auto 0.4 % (0-2); Eosinophils Absolute Auto 0 /uL (0-450); Eosinophils Percent Auto 0.5 % (2-4); Hematocrit 44.3 % (41-53); Hemoglobin 15.4 g/dL (13.5-17.5); Lymphocytes Absolute Auto 2100 /uL (1100-4500); Lymphocytes Percent Auto 32.9 % (25-40); Mean Corpuscular HGB Conc 34.8 % (30-36); Mean Corpuscular Hemoglobin 30.9 PG (26-34); Mean Corpuscular Volume 88.7 fL (80-100); Monocytes Absolute Auto 500 /uL (0-900); Monocytes Percent Auto 8.2 % (3-14); Neutrophils Absolute Auto 3700 /uL (1500-7000); Platelet Count 232 X10^3/uL (150-400); Red Blood Cell Count 4.99 X10^6/uL (4.5-5.9); Red Cell Distribution Width 12.5 % (11.6-14.8); White Blood Cell Count 6.4 X10^3/uL (4.5-11.0)
[2024-09-01 10:53] LABS: Alanine Aminotransferase 110 IU/L (<50); Albumin 5.1 g/dL (3.5-5.0); Albumin Globulin Ratio 1.8 (1.0-2.8); Alkaline Phosphatase 50 U/L (38-126); Aspartate Aminotransferase 51 IU/L (17-59); BUN Creatinine Ratio 13.4 (6-22); Bilirubin Total 0.6 mg/dL (0.2-1.3); Blood Urea Nitrogen 16 mg/dL (9-20); Calcium 9.7 mg/dL (8.4-10.2); Carbon Dioxide 26 mmol/L (22-32); Chloride 103 mmol/L (98-107); Estimated Glomerular Filt Rate > 60 mL/min (>60); Globulin 2.9 g/dL (1.7-4.1); Glucose 112 mg/dL (70-100); HEMOLYSIS < 15 (0-50); Lipase 151 U/L (23-300); Potassium 4.1 mmol/L (3.4-5.1); Sodium 137 mmol/L (137-145)
--- NOTE | 2024-09-01 11:49 | ED_ITS ---
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 Patient reports 5-8 episodes of diarrhea daily that occur regardless if he eats or drinks. Patient denies any blood or mucus in his stool. Patient denies any travel outside the country or drinking or eating from questionable sources. Patient does endorse 3 alcoholic drinks daily. Patient states that he has been placed on a statin for his cholesterol approximately 9 months ago and has had multiple lab tests to ensure there is no liver involvement. Patient endorses 5 to 7/10 pain. Patient's family doctor had ordered a stool culture, and when patient was returning to the lab, was instructed to come to the emergency department for worsening abdominal pain. Related Data Previous Rx's Medication Instructions Recorded ondansetron 4 mg disintegrating 4 mg PO TID-QID PRN nausea and 07/14/22 tablet vomiting #20 tabs hydrocodone 5 mg-acetaminophen 325 1 tab PO Q4-6H PRN pain #14 tabs 11/13/23 mg tablet Allergies Allergy/AdvReac Type Severity Reaction Status Date / Time No Known Drug Allergies Allergy Verified 09/01/24 10:21 Review of Systems <MIGUEL Sanders - Last Filed: 09/01/24 13:35> Review of Systems Narrative: Narrative: See HPI. GENERAL: Denies chills, fatigue, fever, sweats. HEENT: Denies sinus pain, ear pain, sore throat, difficulty swallowing, dizziness. RESPIRATORY: Denies dyspnea, cough, wheezing, sputum. CARDIOVASCULAR: Denies chest pain, palpitations, edema. GASTROINTESTINAL: Denies nausea, vomiting, constipation. Endorses diarrhea and left-sided abdominal pain. : Denies dysuria, frequency, incontinence, hematuria, urinary retention, flank pain. MSK: Denies weakness, joint pain, or bony pain. SKIN: Denies rash, skin lesions, or pruritis. NEUROLOGIC: Denies weakness, dizziness, headache, numbness, confusion. Patient History <MIGUEL Sanders - Last Filed: 09/01/24 13:35> Social History Smoking Status: Current every day smoker Smoking Status: Current every day smoker tobacco type: vaping alcohol intake frequency: 0-2 drinks per day Alcohol type: beer Exam <MIGUEL Sanders - Last Filed: 09/01/24 13:35> Narrative Exam Narrative: Exam Narrative: GENERAL: This is a well-nourished, well-developed patient, in no acute distress. HEAD: Atraumatic. Normocephalic. EYES: Pupils equal round and reactive. Extraocular motions intact. No scleral icterus, injection or drainage. ENT: Nose without bleeding, purulent drainage. Airway patent. NECK: Trachea midline. No JVD or lymphadenopathy. Nontender. CARDIOVASCULAR: Regular rate and rhythm without murmurs, peripheral pulses intact, cap refill <2 sec. RESPIRATORY: Breath sounds equal and clear bilaterally. No wheezes, rales, or rhonchi. No cough. No increased respiratory effort. No accessory muscle use. GASTROINTESTINAL: Abdomen soft, left-sided tenderness, nondistended without guarding or rebound. No suprapubic pain. MSK: Moves all extremities. Normal range of motion, no clubbing or edema. Neurovascularly intact. NEURO: A&O x 3. SKIN: Warm, dry, no rashes or lesions noted. Initial Vital Signs Initial Vital Signs: Vital Signs Temperature 97.5 F L 09/01/24 10:21 Pulse Rate 75 09/01/24 10:21 Respiratory Rate 15 09/01/24 10:21 Blood Pressure 168/112 H 09/01/24 10:21 Pulse Oximetry 99 09/01/24 10:21 Oxygen Delivery Method Room Air 09/01/24 10:21 Reviewed <Toy Vera MD - Last Filed: 09/03/24 08:30> Initial Vital Signs Initial Vital Signs: Vital Signs Temperature 97.5 F L 09/01/24 10:21 Pulse Rate 75 09/01/24 10:21 Respiratory Rate 15 09/01/24 10:21 Blood Pressure 168/112 H 09/01/24 10:21 Pulse Oximetry 99 09/01/24 10:21 Oxygen Delivery Method Room Air 09/01/24 10:21 Course <MIGUEL Sanders - Last Filed: 09/01/24 13:35> Orders Ordered: Discontinued Medications Ondansetron HCl (Ondansetron 4 Mg/2 Ml Inj) 4 mg IV NOW PRN PRN Reason: Nausea And Vomiting Ondansetron HCl (Ondansetron 4 Mg Odt) 4 mg PO NOW PRN PRN Reason: Nausea And Vomiting Vital Signs Vital signs: Vital Signs - 8 hr 09/01/24 10:21 09/01/24 12:26 Temperature 97.5 F L Pulse Rate 75 69 Respiratory Rate 15 18 Blood Pressure 168/112 H 143/83 H Pulse Oximetry 99 100 Oxygen Delivery Method Room Air Room Air <Toy Vera MD - Last Filed: 09/03/24 08:30> Orders Ordered: Discontinued Medications Ondansetron HCl (Ondansetron 4 Mg/2 Ml Inj) 4 mg IV NOW PRN PRN Reason: Nausea And Vomiting Ondansetron HCl (Ondansetron 4 Mg Odt) 4 mg PO NOW PRN PRN Reason: Nausea And Vomiting Vital Signs Vital signs: Vital Signs - 8 hr 09/01/24 10:21 09/01/24 12:26 Temperature 97.5 F L Pulse Rate 75 69 Respiratory Rate 15 18 Blood Pressure 168/112 H 143/83 H Pulse Oximetry 99 100 Oxygen Delivery Method Room Air Room Air MDM - Abdominal Pain <MIGUEL Sanders - Last Filed: 09/01/24 13:35> Differential Diagnosis Differential diagnosis: Likely abdominal pain, small bowel obstruction and other (Diarrhea, liver damage ) Lab Data 09/01/24 10:33 09/01/24 10:33 Labs: Lab Results 09/01/24 09/01/24 Range/Units 10:33 10:44 WBC 6.4 (4.5-11.0) X10^3/uL RBC 4.99 (4.5-5.9) X10^6/uL Hgb 15.4 (13.5-17.5) g/dL Hct 44.3 (41-53) % MCV 88.7 (80-100) fL MCH 30.9 (26-34) PG MCHC 34.8 (30-36) % RDW 12.5 (11.6-14.8) % Plt Count 232 (150-400) X10^3/uL Neut % (Auto) 58.0 (50-75) % Lymph % (Auto) 32.9 (25-40) % Daniels % (Auto) 8.2 (3-14) % Eos % (Auto) 0.5 L (2-4) % Baso % (Auto) 0.4 (0-2) % Neut # (Auto) 3700 (6225-6503) /uL Lymph # (Auto) 2100 (3210-6901) /uL Daniels # (Auto) 500 (0-900) /uL Eos # (Auto) 0 (0-450) /uL Baso # (Auto) 0 (0-100) /uL Sodium 137 (137-145) mmol/L Potassium 4.1 (3.4-5.1) mmol/L Chloride 103 (98-107) mmol/L Carbon Dioxide 26 (22-32) mmol/L BUN 16 (9-20) mg/dL Creatinine 1.19 (0.66-1.25) mg/dL Estimated GFR > 60 (>60) mL/min BUN/Creatinine Ratio 13.4 (6-22) Glucose 112 H (70-100) mg/dL Calcium 9.7 (8.4-10.2) mg/dL Total Bilirubin 0.6 (0.2-1.3) mg/dL AST 51 (17-59) IU/L ALT 110 H (<50) IU/L Alkaline Phosphatase 50 (38-126) U/L Total Protein 8.0 (6.3-8.2) g/dL Albumin 5.1 H (3.5-5.0) g/dL Globulin 2.9 (1.7-4.1) g/dL Albumin/Globulin Ratio 1.8 (1.0-2.8) Lipase 151 (23-300) U/L Stl C. cayetanensis PCR Not detected (Not Detect) Stool Rotavirus (PCR) Not detected (Not Detect) Stool Adenovirus (PCR) Not detected (Not Detect) Stool Astrovirus (PCR) Not detected (Not Detect) Stool Cryptosporidium PCR Not detected (Not Detect) Stl E.coli Shiga Tox PCR Not detected (Not Detect) St Sh/Enteroin Ecoli PCR Not detected (Not Detect) Stl Enterotoxigenic E PCR Not detected (Not Detect) Stool EPEC (PCR) Not detected (Not Detect) Stl E. histolytica PCR Not detected (Not Detect) Stool Giardia Lamblia PCR Not detected (Not Detect) Stool Sapovirus (PCR) Not detected (Not Detect) Stl P. shigelloides PCR Not detected (Not Detect) St Y.enterocolitica PCR Not detected (Not Detect) Stool Vibrio (PCR) Not detected (Not Detect) Stl Vibrio cholerae PCR Not detected (Not Detect) Stl Enteroaggr Ecoli PCR Not detected (Not Detect) Stl Norovirus GI/GII PCR Not detected (Not Detect) Campylobacter (PCR) Not detected (Not Detect) C. difficile Tox (PCR) Not detected (Not Detect) Salmonella (PCR) Not detected (Not Detect) Point of care testing: Urine Dip Bedside Urine Glucose Negative Bedside Urine Bilirubin - Negative Bedside Urine Ketone - Negative Urine Specific [place] 1.010 Bedside Urine Occult Blood - Negative Bedside Urine pH 6 Bedside Urine Protein - Negative Bedside Urine Urobilinogen - Negative Bedside Urine Nitrite - Negative Bedside Urine Leukocytes - Negative Esterase Imaging Data CT scan - abdomen: Radiologist's Impression: [place] [address] CT Scan Report Signed Patient: Britton Aldridge MR#: [id number] : 1985 Acct:[id number] Age/Sex: 39 / M Date of Service: 09/01/24 Loc: ED Accession Number: [id number] Procedure: CT abdomen pelvis w con Ordering Provider: [place] PROCEDURE: CT ABDOMEN PELVIS W CON INDICATIONS: Left-sided abdominal pain TECHNIQUE: After the administration of intravenous contrast, axial sections acquired from the lung bases to the pubic symphysis. Coronal and sagittal reformats were performed. For radiation dose reduction, the following was used: automated exposure control, adjustment of mA and/or kV according to patient size. COMPARISON: None. FINDINGS: Image quality: Diagnostic. Lower Chest: No significant findings. ABDOMEN: Liver: No solid mass. Moderate diffuse hepatic steatosis. Gallbladder: No radiopaque gallstones or wall thickening. Biliary ducts: No biliary dilation. Pancreas: No ductal dilation. Spleen: Size is within normal limits. Adrenal Glands: No adrenal nodules. Kidneys and Ureters: No hydronephrosis. No solid mass. No complex renal cystic lesion which requires follow up. Stomach and Bowel: Normal colonic caliber, without significant wall thickening. Normal appendix. Unremarkable sigmoid. No diverticuli identified. Peritoneum: No abnormal intraperitoneal fluid. No free air. Ventral Wall: No significant ventral hernia. Abdominal Nodes: No retroperitoneal or mesenteric adenopathy by size criteria. Vessels: Aorta and inferior vena cava are normal in size. PELVIS: Pelvic Organs: Unremarkable. Bladder: Mild bladder wall thickening, possibly chronic, as there is focal fatty infiltration of the wall of the bladder at the fundus. Pelvic Nodes: No enlarged lymph nodes. Miscellaneous: No inguinal hernias are seen. Bones: No aggressive osseous abnormality. IMPRESSION: No acute abdominal process. Moderate diffuse hepatic steatosis. Mild bladder wall thickening may be chronic. Consider correlation with urine studies. Dictated by: Andres Crowder M.D. on 09/01/2024 at 13:16 Approved by: Andres Crowder M.D. on 09/01/2024 at 13:20 MDM Narrative Medical decision making narrative: 39-year-old male with 2 month history diarrhea and 2 day history of worsening left-sided abdominal pain. Clinical findings were concerning for worsening left-sided abdominal pain. Labs were non concerning with the exception of a 2:1 ratio AST to ALT. Unsure if this ALT elevation is secondary to alcohol intake or statin prescription. Urine dip and GI panel were both negative. Patient declined anti-nausea medication at this time. Abdominal CT obtained and reveals moderate diffuse hepatic steatosis. Discussed case with Dr. Owusu and referral for General surgery will be submitted for possible colonoscopy. Discussed plan of care and return precautions with patient, who verbalized understanding and was agreeable with course of action. <Toy Vera MD - Last Filed: 09/03/24 08:30> Lab Data Labs: Lab Results 09/01/24 09/01/24 Range/Units 10:33 10:44 WBC 6.4 (4.5-11.0) X10^3/uL RBC 4.99 (4.5-5.9) X10^6/uL Hgb 15.4 (13.5-17.5) g/dL Hct 44.3 (41-53) % MCV 88.7 (80-100) fL MCH 30.9 (26-34) PG MCHC 34.8 (30-36) % RDW 12.5 (11.6-14.8) % Plt Count 232 (150-400) X10^3/uL Neut % (Auto) 58.0 (50-75) % Lymph % (Auto) 32.9 (25-40) % Daniels % (Auto) 8.2 (3-14) % Eos % (Auto) 0.5 L (2-4) % Baso % (Auto) 0.4 (0-2) % Neut # (Auto) 3700 (5296-2662) /uL Lymph # (Auto) 2100 (6938-1824) /uL Daniels # (Auto) 500 (0-900) /uL Eos # (Auto) 0 (0-450) /uL Baso # (Auto) 0 (0-100) /uL Sodium 137 (137-145) mmol/L Potassium 4.1 (3.4-5.1) mmol/L Chloride 103 (98-107) mmol/L Carbon Dioxide 26 (22-32) mmol/L BUN 16 (9-20) mg/dL Creatinine 1.19 (0.66-1.25) mg/dL Estimated GFR > 60 (>60) mL/min BUN/Creatinine Ratio 13.4 (6-22) Glucose 112 H (70-100) mg/dL Calcium 9.7 (8.4-10.2) mg/dL Total Bilirubin 0.6 (0.2-1.3) mg/dL AST 51 (17-59) IU/L ALT 110 H (<50) IU/L Alkaline Phosphatase 50 (38-126) U/L Total Protein 8.0 (6.3-8.2) g/dL Albumin 5.1 H (3.5-5.0) g/dL Globulin 2.9 (1.7-4.1) g/dL Albumin/Globulin Ratio 1.8 (1.0-2.8) Lipase 151 (23-300) U/L Stl C. cayetanensis PCR Not detected (Not Detect) Stool Rotavirus (PCR) Not detected (Not Detect) Stool Adenovirus (PCR) Not detected (Not Detect) Stool Astrovirus (PCR) Not detected (Not Detect) Stool Cryptosporidium PCR Not detected (Not Detect) Stl E.coli Shiga Tox PCR Not detected (Not Detect) St Sh/Enteroin Ecoli PCR Not detected (Not Detect) Stl Enterotoxigenic E PCR Not detected (Not Detect) Stool EPEC (PCR) Not detected (Not Detect) Stl E. histolytica PCR Not detected (Not Detect) Stool Giardia Lamblia PCR Not detected (Not Detect) Stool Sapovirus (PCR) Not detected (Not Detect) Stl P. shigelloides PCR Not detected (Not Detect) St Y.enterocolitica PCR Not detected (Not Detect) Stool Vibrio (PCR) Not detected (Not Detect) Stl Vibrio cholerae PCR Not detected (Not Detect) Stl Enteroaggr Ecoli PCR Not detected (Not Detect) Stl Norovirus GI/GII PCR Not detected (Not Detect) Campylobacter (PCR) Not detected (Not Detect) C. difficile Tox (PCR) Not detected (Not Detect) Salmonella (PCR) Not detected (Not Detect) Point of care testing: Urine Dip Bedside Urine Glucose Negative Bedside Urine Bilirubin - Negative Bedside Urine Ketone - Negative Urine Specific [place] 1.010 Bedside Urine Occult Blood - Negative Bedside Urine pH 6 Bedside Urine Protein - Negative Bedside Urine Urobilinogen - Negative Bedside Urine Nitrite - Negative Bedside Urine Leukocytes - Negative Esterase Discharge Plan Departure Patient Disposition: Home Clinical Impression: Abdominal pain Qualifiers: Abdominal location: left upper quadrant Qualified Code(s): R10.12 - Left upper quadrant pain Instructions: DI for Abdominal Pain-Adult Activity Restrictions/Additional Instructions: *You have been diagnosed with abdominal pain. My assessment was encouraging, your labs are not overly concerning and your CAT scan revealed moderate diffuse hepatic steatosis. I will place a referral to General surgery for possible colonoscopy to determine the cause of your persistent diarrhea. For any worsening symptoms, please return to the emergency room immediately. Otherwise, follow up with family doctor as needed. *What to do: *Please continue to take your regular medications as directed. [ ] New medication prescriptions sent to your pharmacy: [ ] [ ] New medication written as a paper prescription [x ] No new medications given *Please follow up with your primary care provider in 2-3 days, call for an appointment. Let them know you were seen in the Emergency Department and that we ask that you be seen in follow up. We will electronically transmit a record of today's note if your PCP is in our system *If you do not have a primary care provider please contact the [facility] Resource line at [phone]. They will ask some questions about your medical history and help get you set up with a doctor in the community. ? Return to ER if you should have any new, worsening or concerning symptoms, such as worsening pain, severe headache, confusion, chest pain, difficulty breathing, fever greater than 101 F, shaking chills, persistent vomiting to the point that you cannot drink fluids, or other new or worsening symptoms. Prescriptions: No Action ondansetron 4 mg tablet,disintegrating 4 mg PO TID-QID PRN (Reason: nausea and vomiting) Qty: 20 0RF hydrocodone-acetaminophen 5-325 mg tablet 1 tab PO Q4-6H PRN (Reason: pain) Qty: 14 0RF Referrals: Alban Bryan MD [Physician] - (Please evaluate and treat persistent diarrhea and left-sided abdominal pain.) Provider,Belle PUCKETT [Primary Care Provider] - Stand Alone Forms: Patient Portal/API/Survey ED Sign-out <Toy Vera MD - Last Filed: 09/03/24 08:30> Cosign ED Attending Cosignature Attestation: I was immediately available in the department for consultation. ?This documentation has been reviewed and I agree with assessment and plan. Supervised by Toy Vera MD
[2024-09-01 11:59] LABS: Adenovirus F 40/41 Not Detected (Not Detect); Astrovirus Not Detected (Not Detect); Campylobacter Not Detected (Not Detect); Clostridium difficile toxin AB Not Detected (Not Detect); Cryptosporidium Not Detected (Not Detect); Cyclospora cayetanensis Not Detected (Not Detect); Entamoeba histolytica Not Detected (Not Detect); Enteroaggregative E.coli Not Detected (Not Detect); Enteropathogenic E.coli Not Detected (Not Detect); Enterotoxigenic E.coli It/st Not Detected (Not Detect); Giardia lamblia Not Detected (Not Detect); Norovirus GI/GII Not Detected (Not Detect); Plesiomonsa shigelloides Not Detected (Not Detect); Rotavirus A Not Detected (Not Detect); Salmonella Not Detected (Not Detect); Sapovirus Not Detected (Not Detect); Shiga-like toxin-prod E.coli Not Detected (Not Detect); Shigella/Enteroinvasive E.coli Not Detected (Not Detect); Vibrio Not Detected (Not Detect); Vibrio cholerae Not Detected (Not Detect); Yersinia enterocolitica Not Detected (Not Detect)
--- NOTE | 2024-09-01 11:59 | PC.NURSE ---
Patient here in department for diarrhea x 2 months, he reports that anytime he eats or drinks anything he has diarrhea. He also reports some new onset of left sided abd pain that started two days ago, tender on palpation and with movement. Has had episodes of diarrhea in the past but never gone on this long. Patient reports some nausea but not requesting medication at this time.
[2024-09-01 12:26] VITALS: BP 143/83; PULSE 69; RESP 18; O2SAT 100
[2024-09-01 13:37] VITALS: BP 128/68; PULSE 72; RESP 16; O2SAT 98
== END 2024-09-01 13:37 | disposition home or self-care (01) ==
PROVIDERS: Emergency Medicine; Emergency Provider Registered Nurse
DX: R19.7 Diarrhea, unspecified (principal); R10.12 Left upper quadrant pain; K76.0 Fatty (change of) liver, not elsewhere classified; Z79.899 Other long term (current) drug therapy
CPT/HCPCS: 36415; 74177; 80053; 81003; 83690; 85025; 87507; 99282; 99284; Q9967

== ENCOUNTER 2024-09-03 10:51 | Emergency (ER) | payer OTHER, SELFPAY ==
[2024-09-03] VITALS (17 sets, daily range): BP systolic 116–139; BP diastolic 66–104; PULSE 65–84; RESP 14–28; TEMP 36.5; O2SAT 93–100; BMI 35.4
[2024-09-03 12:07] LABS: Add Manual Diff / Slide Review NO; Basophils Absolute Auto 0 /uL (0-100); Basophils Percent Auto 0.3 % (0-2); Eosinophils Absolute Auto 0 /uL (0-450); Eosinophils Percent Auto 0.4 % (2-4); Hematocrit 43.8 % (41-53); Hemoglobin 14.9 g/dL (13.5-17.5); Lymphocytes Absolute Auto 2000 /uL (1100-4500); Lymphocytes Percent Auto 31.6 % (25-40); Mean Corpuscular Hemoglobin 30.2 PG (26-34); Mean Corpuscular Volume 88.8 fL (80-100); Monocytes Absolute Auto 400 /uL (0-900); Monocytes Percent Auto 6.6 % (3-14); Neutrophils Absolute Auto 4000 /uL (1500-7000); Neutrophils Percent Auto 61.1 % (50-75); Platelet Count 206 X10^3/uL (150-400); Red Blood Cell Count 4.93 X10^6/uL (4.5-5.9); Red Cell Distribution Width 12.5 % (11.6-14.8); White Blood Cell Count 6.5 X10^3/uL (4.5-11.0)
--- NOTE | 2024-09-03 12:07 | EKG_ITS ---
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
[2024-09-03 12:37] LABS: Alanine Aminotransferase 116 IU/L (<50); Albumin 4.7 g/dL (3.5-5.0); Albumin Globulin Ratio 1.8 (1.0-2.8); Alkaline Phosphatase 48 U/L (38-126); Aspartate Aminotransferase 50 IU/L (17-59); BUN Creatinine Ratio 12.3 (6-22); Bilirubin Total 0.4 mg/dL (0.2-1.3); Blood Urea Nitrogen 14 mg/dL (9-20); Calcium 9.8 mg/dL (8.4-10.2); Carbon Dioxide 24 mmol/L (22-32); Chloride 106 mmol/L (98-107); Estimated Glomerular Filt Rate > 60 mL/min (>60); Globulin 2.6 g/dL (1.7-4.1); Glucose 110 mg/dL (70-100); HEMOLYSIS < 15 (0-50); Lipase 136 U/L (23-300); Potassium 4.4 mmol/L (3.4-5.1); Sodium 137 mmol/L (137-145); Total Protein 7.3 g/dL (6.3-8.2)
--- NOTE | 2024-09-03 12:58 | ED_ITS ---
HPI - Abdominal Pain General Chief Complaint: Abdominal Pain Stated Complaint: Still in pain from last ER visit Time Seen by Provider: 09/03/24 11:47 Source: patient, RN notes reviewed and old records reviewed Mode of arrival: Ambulatory Limitations: no limitations History of Present Illness HPI narrative: 39-year-old male history of dyslipidemia, depression who presents with complaint of his left side he states it is sort of rate at the bottom of his ribs states it is more the slide it has not really in the flank does not really wrap around the front. Started on Friday. Denies any trauma or injuries. Patient's pain has not improved it seems to be worse particularly with movement cough but he does not appreciate any increased pain with inhalation. Not moving seems to make it better. He notes he has a lidocaine patch in place it was actually painful to remove it. They thought they noticed sort of a mendez spot over that area but no other rashes or skin changes have developed. Patient states he has had some sweats today but no other changes no chest pain of the upper chest. No shortness of breath. No nausea or vomiting. Notes he has had some diarrhea since then did have little bit of black discoloration. Patient's states that the black discoloration started after Pepto-Bismol. He has had diarrhea before that he states it sort of soft serve. Denies any urinary symptoms dysuria urgency frequency. States he takes medication and cholesterol medicine notes thinners, nothing for blood pressure or diabetes. States prior surgeries include hand surgery and carpal tunnel. No known drug allergies. Vapes tobacco, no recent alcohol but normally has a 1-2 drinks daily. No recreational drugs. Patient has had some [id number] pain medications he did note that he was 2 lidocaine patch and removing it felt very painful. He states lidocaine patch was not very helpful. He states he did not wish for any pain medication currently is as he still does not increase his pain. Related Data Previous Rx's Medication Instructions Recorded ondansetron 4 mg disintegrating 4 mg PO TID-QID PRN nausea and 07/14/22 tablet vomiting #20 tabs hydrocodone 5 mg-acetaminophen 325 1 tab PO Q4-6H PRN pain #14 tabs 11/13/23 mg tablet hydrocodone 5 mg-acetaminophen 325 1 tab PO Q6H PRN pain #10 tabs 01/10/25 mg tablet Allergies Allergy/AdvReac Type Severity Reaction Status Date / Time No Known Drug Allergies Allergy Verified 09/01/24 10:21 Review of Systems Review of Systems ROS Unobtainable: All systems reviewed & are unremarkable except as noted in HPI and below Patient History Social History Smoking Status: Current every day smoker Smoking Status: Current every day smoker tobacco type: vaping alcohol intake frequency: 0-2 drinks per day Alcohol type: beer Exam Narrative Exam Narrative: GENERAL: Alert and oriented x three, [id number] HEENT: Head normocephalic, atraumatic, EOMI, pupils reactive, face symmetric, moist mucous membranes NECK: Supple, full range of motion CARDIOVASCULAR: Regular rate and rhythm without murmurs, rubs or gallops. RESPIRATORY: Breath sounds equal bilaterally, no wheezes rales or rhonchi. Patient does not really have any reproducible pain on examination has a little bit of discomfort right underneath the lateral ribs. No rash, no erythema or skin changes appreciated on the back torso or abdomen. ABDOMEN: Soft, nontender. Normoactive bowel sounds all 4 quadrants. No guarding or rebound, rigidity, no mass, no pulsatile mass. : No CVA tenderness EXTREMITIES: Normal range of motion, no clubbing or edema. Neurovascularly intact NEUROLOGICAL: Cranial nerves II through XII grossly intact. Moving all extremities SKIN: Warm, dry, no petechiae, no rashes or lesions. Initial Vital Signs Initial Vital Signs: Vital Signs Temperature 97.7 F 09/03/24 11:00 Pulse Rate 84 09/03/24 11:00 Respiratory Rate 14 09/03/24 11:00 Blood Pressure 126/77 09/03/24 11:00 Pulse Oximetry 100 09/03/24 11:00 Oxygen Delivery Method Room Air 09/03/24 11:00 Course Orders Ordered: ED Orders 09/03/24 11:57 Complete Blood Count AUTO DIFF Stat Comprehensive Metabolic Panel Stat Lipase Stat 09/03/24 12:51 EKG-12 Lead Stat 09/03/24 14:03 CT angio chest abdomen pelvis Stat 09/03/24 15:51 Urine Microscopic Stat Discontinued Medications Sodium Chloride (Normal Saline 0.9%) 1,000 mls @ 1,000 mls/hr IV BOLUS ONE Stop: 09/03/24 15:48 Last Infusion: 09/03/24 16:20 Dose: Infused Documented By: [place] Admin: 09/03/24 15:14 Dose: 1,000 mls/hr Documented By: Vital Signs Vital signs: Vital Signs - 8 hr 09/03/24 11:00 09/03/24 11:48 09/03/24 11:49 Temperature 97.7 F Pulse Rate 84 75 74 Respiratory Rate 14 Blood Pressure 126/77 Pulse Oximetry 100 97 96 Oxygen Delivery Method Room Air 09/03/24 11:49 09/03/24 12:00 09/03/24 12:00 Temperature Pulse Rate 73 Respiratory Rate 25 H Blood Pressure 120/78 123/79 Pulse Oximetry 93 Oxygen Delivery Method 09/03/24 12:30 09/03/24 12:30 09/03/24 13:00 Temperature Pulse Rate 69 Respiratory Rate 22 Blood Pressure 116/71 118/73 Pulse Oximetry 95 Oxygen Delivery Method 09/03/24 13:00 09/03/24 13:30 09/03/24 13:30 Temperature Pulse Rate 74 73 Respiratory Rate 24 24 Blood Pressure 123/76 Pulse Oximetry 95 94 Oxygen Delivery Method 09/03/24 14:00 09/03/24 14:03 09/03/24 14:03 Temperature Pulse Rate 79 75 Respiratory Rate 22 22 Blood Pressure 125/74 Pulse Oximetry 96 96 Oxygen Delivery Method 09/03/24 14:18 09/03/24 14:18 09/03/24 14:30 Temperature Pulse Rate 73 68 Respiratory Rate 19 28 H Blood Pressure 139/83 Pulse Oximetry 98 96 Oxygen Delivery Method 09/03/24 14:31 09/03/24 14:31 09/03/24 15:00 Temperature Pulse Rate 65 Respiratory Rate 26 H Blood Pressure 133/104 H 134/76 Pulse Oximetry 96 Oxygen Delivery Method 09/03/24 15:00 09/03/24 15:30 09/03/24 15:30 Temperature Pulse Rate 81 70 Respiratory Rate 18 18 Blood Pressure 119/69 Pulse Oximetry 97 96 Oxygen Delivery Method 09/03/24 15:48 09/03/24 15:48 09/03/24 16:00 Temperature Pulse Rate 73 73 Respiratory Rate 24 27 H Blood Pressure 132/77 Pulse Oximetry 98 95 Oxygen Delivery Method 09/03/24 16:00 09/03/24 16:30 09/03/24 16:30 Temperature Pulse Rate 74 Respiratory Rate 27 H Blood Pressure 123/66 123/83 Pulse Oximetry 95 Oxygen Delivery Method MDM - Abdominal Pain Lab Data 09/03/24 11:57 09/03/24 11:57 Labs: Lab Results 09/03/24 09/03/24 Range/Units 11:57 15:51 WBC 6.5 (4.5-11.0) X10^3/uL RBC 4.93 (4.5-5.9) X10^6/uL Hgb 14.9 (13.5-17.5) g/dL Hct 43.8 (41-53) % MCV 88.8 (80-100) fL MCH 30.2 (26-34) PG MCHC 34.0 (30-36) % RDW 12.5 (11.6-14.8) % Plt Count 206 (150-400) X10^3/uL Neut % (Auto) 61.1 (50-75) % Lymph % (Auto) 31.6 (25-40) % [place] % (Auto) 6.6 (3-14) % Eos % (Auto) 0.4 L (2-4) % Baso % (Auto) 0.3 (0-2) % Neut # (Auto) 4000 (6409-7019) /uL Lymph # (Auto) 2000 (6026-3415) /uL [place] # (Auto) 400 (0-900) /uL Eos # (Auto) 0 (0-450) /uL Baso # (Auto) 0 (0-100) /uL Sodium 137 (137-145) mmol/L Potassium 4.4 (3.4-5.1) mmol/L Chloride 106 (98-107) mmol/L Carbon Dioxide 24 (22-32) mmol/L BUN 14 (9-20) mg/dL Creatinine 1.14 (0.66-1.25) mg/dL Estimated GFR > 60 (>60) mL/min BUN/Creatinine Ratio 12.3 (6-22) Glucose 110 H (70-100) mg/dL Calcium 9.8 (8.4-10.2) mg/dL Total Bilirubin 0.4 (0.2-1.3) mg/dL AST 50 (17-59) IU/L ALT 116 H (<50) IU/L Alkaline Phosphatase 48 (38-126) U/L Total Protein 7.3 (6.3-8.2) g/dL Albumin 4.7 (3.5-5.0) g/dL Globulin 2.6 (1.7-4.1) g/dL Albumin/Globulin Ratio 1.8 (1.0-2.8) Lipase 136 (23-300) U/L Urine RBC None seen (0-5/HPF) Urine WBC None seen (0-5/HPF) Ur Squamous Epith Cells None seen (0-5/HPF) Urine Bacteria Occasional (0-1) (None) Ur Culture Indicated? Cult not indicated Vol Urine Centrifuged 10ml (spun) Point of care testing: Urine Dip Bedside Urine Glucose Negative Bedside Urine Bilirubin - Negative Bedside Urine Ketone - Negative Urine Specific [place] 1.015 Bedside Urine Occult Blood - Negative Bedside Urine pH 5.5 Bedside Urine Protein - Negative Bedside Urine Urobilinogen - Negative Bedside Urine Nitrite - Negative Bedside Urine Leukocytes - Negative Esterase Imaging Data CTA chest/abd/pelvis: Radiologist's Impression: Close Chest/Abdomen/Pelvis CTA (Signed) Rafal Paredes - 09/03/24 Abdomen/Pelvis CT (Signed) Andres Crowder - 09/01/24 Forearm X-Ray (Signed) Vashti Rangel - 07/18/24 Abdomen Ultrasound (Signed) Lai Andrews - 12/31/23 Hand X-Ray (Signed) Daniele Lea - 11/13/22 Launch?[place] [address] CT Scan Report Signed Patient: Britton Aldridge MR#: [id number] : 1985 Acct:[id number] Age/Sex: 39 / M Date of Service: 09/03/24 Loc: ED Accession Number: [id number] Procedure: CT angio chest abdomen pelvis Ordering Provider: Agueda Chopra D.O. PROCEDURE: CT ANGIO CHEST ABDOMEN PELVIS INDICATIONS: Left side/flank/chest pain TECHNIQUE: Precontrast 5 mm thick sections acquired from the lung apices to the iliac crests. After the administration of intravenous contrast, 2.5 mm thick sections again acquired from the lung apices to the iliac crests. Maximum intensity projection (MIP) oblique sagittal and coronal reformats were then acquired. For radiation dose reduction, the following was used: automated exposure control. COMPARISON: [facility], CT, CT ABDOMEN PELVIS W CON, 09/01/2024, 12:19. FINDINGS: Image quality: Diagnostic Lungs and pleura: No dense airspace disease. No pleural effusions. No pneumothorax or hemothorax. No overtly suspicious pulmonary nodules. Follow-up for micro nodules for example on the left and on the right is optional for high risk patients in 1 year. Mediastinum, heart, and esophagus: On precontrast imaging, no intramural hematoma is identified. On postcontrast imaging, no acute or dissection. The aorta appears patent. Normal heart size. Trace pericardial effusion. No pathologic lymph nodes by size criteria. Chest wall and thyroid: Unremarkable Liver: Moderate hepatic steatosis and hepatomegaly. Suspected focal fatty sparing adjacent to the gallbladder fossa Gallbladder and biliary system: Unremarkable, nondilated Pancreas: No ductal dilation Spleen: Nonenlarged Adrenals: No discrete nodules Kidneys: No solid renal mass. No obstructing calcified stone or hydronephrosis. There is subtle asymmetric enhancement of the left kidney compared to the right Vessels and lymph nodes: The major mesenteric arteries appear patent. The renal arteries appear patent. No abdominal aortic aneurysm. The pelvic arteries appear patent. No pathologic lymph nodes by size criteria. Bowel and peritoneum: No evidence of small bowel obstruction. No pathologic ascites. No drainable abscess. The appendix is seen and is nondilated. Body wall: Small fat containing left inguinal hernia and umbilical hernia. Pelvis: Bladder is unremarkable. Bones: The pelvic ring appears intact. No acute displaced fracture is seen. IMPRESSION: Subtle asymmetric enhancement of the left kidney compared to the right. There is no calcified stone in the collecting system or occlusive thrombus in the left renal vein or left renal artery. Consider urinalysis correlation and ultrasound correlation if necessary. Hepatic steatosis and hepatomegaly. No aortic dissection. Other findings above Dictated by: Rafal Paredes M.D. on 09/03/2024 at 14:36 Approved by: Rafal Paredes M.D. on 09/03/2024 at 14:44 ECG Data Attestation: I personally reviewed and interpreted this ECG as follows: Interpretation: NSR rate 68, ME 176, qrs [address] changes. MDM Narrative Medical decision making narrative: CBC shows no acute change. Chemistry shows a glucose of 110 otherwise normal creatinine electrolytes, ALT of 116 AST of 50 total bilirubin 0.4 lipase of 136. Urine shows 1 bacteria. Point of care shows no acute change. Patient had workup on 09/01/[address] imaging showed moderate diffuse hepatic steatosis mild bladder wall thickening could be chronic no other acute abdominal process at that time CTA chest/abd/pelvis obtained, subtle asymmetric has been left kidney compared to right no calcified stone in the collecting system request of thrombus in left renal vein or left renal artery consider UA ultrasound correlation is necessary hepatic steatosis hepatomegaly no aortic dissection small fat containing left inguinal hernia and umbilical hernia. Discussed with patient and family reviewed his findings from today discussed obtaining ultrasound of the kidney for better delineation of blood flow and any other issues with the kidney. But patient defers he also notes he has had some persistent diarrhea discussed follow up for colonoscopy states he was given referral but has not called we will give contact information again. Patient does not wish to stay to obtain a kidney ultrasound he has had normal renal function negative urine does not have any signs of thrombosis or vascular issues to the kidney itself, no hydro so felt appropriate for discharge home we will give a short course of pain medication but would like patient to follow up for recheck. Strict return precautions. Discharge Plan Departure Patient Disposition: Home Clinical Impression: Abdominal pain Activity Restrictions/Additional Instructions: Your workup today shows some mild asymmetrical enhancement of the kidneys left compared to the right but no other obvious changes you had a CT angio of the chest abdomen and pelvis your labs were all normal and your urine did not show any signs of infection. With your persistent diarrhea I would follow up for possible colonoscopy and contacts included below low. You should call to set this up. I would also follow up with your primary care physician to recheck your renal function. You can take [place] 1-2 tablets every 6 hours as needed for pain. You can take ibuprofen up to 600 mg every 6 hours with this medication. Prescription sent to [facility] in [place]. Please return for fevers, worsening abdominal back or flank pain, passing out, persistent vomiting, new changes to your bowel movements, bloody stools or other new or concerning changes. Prescriptions: New hydrocodone-acetaminophen 5-325 mg tablet 1 tab PO Q6H PRN (Reason: pain) Qty: 10 0RF No Action ondansetron 4 mg tablet,disintegrating 4 mg PO TID-QID PRN (Reason: nausea and vomiting) Qty: 20 0RF hydrocodone-acetaminophen 5-325 mg tablet 1 tab PO Q4-6H PRN (Reason: pain) Qty: 14 0RF Referrals: Evelio Lanza MD [Physician] - Provider,Belle PUCKETT [Primary Care Provider] - Stand Alone Forms: Patient Portal/API/Survey
--- NOTE | 2024-09-03 14:03 | DI.CT.S_ITS ---
PROCEDURE: CT ANGIO CHEST ABDOMEN PELVIS INDICATIONS: Left side/flank/chest pain TECHNIQUE: Precontrast 5 mm thick sections acquired from the lung apices to the iliac crests. After the administration of intravenous contrast, 2.5 mm thick sections again acquired from the lung apices to the iliac crests. Maximum intensity projection (MIP) oblique sagittal and coronal reformats were then acquired. For radiation dose reduction, the following was used: automated exposure control. COMPARISON: [facility], CT, CT ABDOMEN PELVIS W CON, 09/01/2024, 12:19. FINDINGS: Image quality: Diagnostic Lungs and pleura: No dense airspace disease. No pleural effusions. No pneumothorax or hemothorax. No overtly suspicious pulmonary nodules. Follow-up for micro nodules for example on the left and on the right is optional for high risk patients in 1 year. Mediastinum, heart, and esophagus: On precontrast imaging, no intramural hematoma is identified. On postcontrast imaging, no acute or dissection. The aorta appears patent. Normal heart size. Trace pericardial effusion. No pathologic lymph nodes by size criteria. Chest wall and thyroid: Unremarkable Liver: Moderate hepatic steatosis and hepatomegaly. Suspected focal fatty sparing adjacent to the gallbladder fossa Gallbladder and biliary system: Unremarkable, nondilated Pancreas: No ductal dilation Spleen: Nonenlarged Adrenals: No discrete nodules Kidneys: No solid renal mass. No obstructing calcified stone or hydronephrosis. There is subtle asymmetric enhancement of the left kidney compared to the right Vessels and lymph nodes: The major mesenteric arteries appear patent. The renal arteries appear patent. No abdominal aortic aneurysm. The pelvic arteries appear patent. No pathologic lymph nodes by size criteria. Bowel and peritoneum: No evidence of small bowel obstruction. No pathologic ascites. No drainable abscess. The appendix is seen and is nondilated. Body wall: Small fat containing left inguinal hernia and umbilical hernia. Pelvis: Bladder is unremarkable. Bones: The pelvic ring appears intact. No acute displaced fracture is seen. IMPRESSION: Subtle asymmetric enhancement of the left kidney compared to the right. There is no calcified stone in the collecting system or occlusive thrombus in the left renal vein or left renal artery. Consider urinalysis correlation and ultrasound correlation if necessary. Hepatic steatosis and hepatomegaly. No aortic dissection. Other findings above Dictated by: Rafal Paredes M.D. on 09/03/2024 at 14:36 Approved by: Rafal Paredes M.D. on 09/03/2024 at 14:44
[2024-09-03] MEDS: SODIUM CHLORIDE 0.9% 1,000 ML 1000 ML IV (15:14)
[2024-09-03 16:31] LABS: Bacteria Urine Occasional (0-1); RBC Urine None Seen (0-5/HPF); Squamous Epithelial Cell Urine None Seen (0-5/HPF); Urine Volume 10mL (spun); WBC Urine None Seen (0-5/HPF)
[2024-09-03 16:32] LABS: Culture Indicated Urine Cult Not Indicated
== END 2024-09-03 17:02 | disposition home or self-care (01) ==
PROVIDERS: Emergency Provider Emergency Medicine
DX: R10.9 Unspecified abdominal pain (principal); R07.9 Chest pain, unspecified
CPT/HCPCS: 36415; 71275; 74174; 80053; 81003; 81015; 83690; 85025; 93005; 93010; 96360; 99284; Q9967